=== PATIENT | male | born 2000 | race Caucasian/White ===

== ENCOUNTER 2022-05-30 01:36 | Inpatient (IN) | payer SELFPAY ==
[2022-05-30] VITALS (10 sets, daily range): BP systolic 147–181; BP diastolic 77–110
[~2022-05-30] VITALS: Ht 193 cm; Wt 126.1 kg
[2022-05-30] MEDS ORDERED: FAMOTIDINE 20 MG/2 ML VIAL IV STA (02:10)
[2022-05-30] MEDS ORDERED: ONDANSETRON HCL INJ 2MG/ML 2ML 2 MG/ML VIAL IV STA (02:10)
[2022-05-30] MEDS ORDERED: SODIUM CHLORIDE FLUSH 10 ML SYR IV PRN (02:14)
[2022-05-30] MEDS: SODIUM CHLORIDE 0.9% 1000ML 1,000 ML IV SCH ×4 (02:30→22:37)
[2022-05-30] MEDS ORDERED: SODIUM CHLORIDE 0.9% 1000ML 1,000 ML ONE (02:31)
[2022-05-30] MEDS ORDERED: ONDANSETRON HCL INJ 2MG/ML 2ML 2 MG/ML VIAL ONE (02:31)
[2022-05-30] MEDS ORDERED: FAMOTIDINE 20 MG/2 ML VIAL IV ONE (02:32)
[2022-05-30] MEDS ORDERED: KETOROLAC TROMETHAMINE 30 MG/ML VIAL IV STA (02:57)
[2022-05-30] MEDS ORDERED: DONNATAL/LIDOCAINE/MAALOX 30 ML SUSP PO ONE (03:00)
[2022-05-30 03:01] LABS: BASOPHILS # (AUTO) 0.1 (0.0-0.1); BASOPHILS % 0.3 % (0.0-1.0); HEMATOCRIT 53.3 % (38.2-49.6); HEMOGLOBIN 18.3 g/dL (14.0-18.0); LYMPHOCYTES # (AUTO) 1.2 (1.0-3.2); MEAN CORPUSCULAR HEMOGLOBIN 33.8 pg (28-32); MEAN CORPUSCULAR HGB CONC 34.3 g/dL (31-35); MEAN CORPUSCULAR VOLUME 98.3 fL (81-99); MONOCYTES # (AUTO) 1.6 (0.2-0.8); MONOCYTES % 6.7 % (4.4-11.3); NEUTROPHILS % 87.4 % (38.7-80.0); PLATELET COUNT 304 x10e3/uL (140-360); RED BLOOD COUNT 5.42 x10e6/uL (4.3-5.7); RED CELL DISTRIBUTION WIDTH 12.8 % (11.7-14.4)
[2022-05-30 03:11] LABS: INR 0.86; PARTIAL THROMBOPLASTIN TIME 27.4 seconds (23.8-35.5); PROTHROMBIN TIME 12.5 seconds (11.9-14.5)
[2022-05-30 03:22] LABS: ALBUMIN 4.3 g/dL (3.5-5.0); ANION GAP 22.9 mmol/L (8-16); CALCIUM 9.1 mg/dL (8.4-10.2); CREATININE, SERUM 0.98 mg/dL (0.72-1.25); POTASSIUM 3.9 mmol/L (3.5-5.1)
[2022-05-30] MEDS ORDERED: SODIUM CHLORIDE 0.9% 1000ML 1,000 ML IV SCH (03:30)
[2022-05-30] MEDS ORDERED: BELLADONNA ALK/PHENOBARBITAL 5 ML UDC ONE (03:32)
[2022-05-30] MEDS ORDERED: LIDOCAINE VISC 2% SOLN 15 ML UDC ONE (03:32)
[2022-05-30] MEDS ORDERED: MAGNESIUM/ALUMINUM/SIMETHICONE 30 ML UDC ONE (03:33)
[2022-05-30] MEDS ORDERED: IOPAMIDOL 370 MG/ML 100 ML INFUS..BTL INJ ONE (04:13)
[2022-05-30 04:22] LABS: CLARITY,URINE SL CLOUDY (CLEAR); COLOR,URINE AMBER (YELLOW); KETONES,URINE NEGATIVE (NEGATIVE); LEUKOCYTE ESTERASE ,URINE NEGATIVE (NEGATIVE); NITRITE,URINE NEGATIVE (NEGATIVE); PROTEIN,URINE DIPSTICK TRACE (NEGATIVE); URINE UROBILINOGEN 0.2 mg/dL (0.2 - 1)
[2022-05-30 04:26] LABS: AMPHETAMINES SCREEN,URINE NEGATIVE (NEGATIVE); BENZODIAZEPINES SCREEN,URINE NEGATIVE (NEGATIVE); PHENCYCLIDINE SCREEN,URINE NEGATIVE (NEGATIVE)
[2022-05-30 04:28] LABS: BACTERIA,URINE RARE /HPF; EPITHELIAL CELLS,URINE RARE /LPF; MUCUS,URINE MANY (RARE); WBC,URINE (MAN) 0-5 /HPF (0-5)
[2022-05-30] MEDS ORDERED: ACETAMINOPHEN 1000 MG/100 ML IV STA (04:56)
[2022-05-30] MEDS ORDERED: ONDANSETRON HCL INJ 2MG/ML 2ML 2 MG/ML VIAL IV PRN (05:00)
[2022-05-30] MEDS ORDERED: Morphine 4mg INJECTION 4 MG/ML INJ IV PRN (05:00)
[2022-05-30] MEDS ORDERED: PIPERACILLIN/TAZOBACTAM 3.375 GM VIAL ONE (06:05)
[2022-05-30] MEDS: HYDROMORPHONE 1MG/1ML INJ IV PRN ×6 (09:13→22:37)
[2022-05-30] MEDS ORDERED: SODIUM CHLORIDE 0.9% IV ONE ×3 (09:15)
[2022-05-30] MEDS: AMLODIPINE BESYLATE 10 MG TAB PO SCH (13:09)
[2022-05-30] MEDS: NICOTINE 21 MG/EA PATCH TOP SCH (13:42)
[2022-05-30] MEDS: BUPROPION HCL SR 150 MG TAB PO SCH (17:33)
[2022-05-31] VITALS (7 sets, daily range): BP systolic 131–163; BP diastolic 83–92
[2022-05-31] MEDS: HYDROMORPHONE 1MG/1ML INJ IV PRN ×7 (01:42→23:40)
[2022-05-31] MEDS: SODIUM CHLORIDE 0.9% 1000ML 1,000 ML IV SCH ×4 (04:59→23:41)
[2022-05-31 06:16] LABS: BASOPHILS # (AUTO) 0.1 (0.0-0.1); BASOPHILS % 0.3 % (0.0-1.0); EOSINOPHILS % 0.2 % (0.0-6.0); HEMATOCRIT 41.8 % (38.2-49.6); HEMOGLOBIN 14.8 g/dL (14.0-18.0); LYMPHOCYTES # (AUTO) 1.1 (1.0-3.2); LYMPHOCYTES % 5.7 % (18.0-39.1); MEAN CORPUSCULAR HEMOGLOBIN 33.9 pg (28-32); MEAN CORPUSCULAR HGB CONC 35.4 g/dL (31-35); MEAN CORPUSCULAR VOLUME 95.7 fL (81-99); MONOCYTES # (AUTO) 1.3 (0.2-0.8); MONOCYTES % 6.5 % (4.4-11.3); NEUTROPHILS % 86.2 % (38.7-80.0); PLATELET COUNT 169 x10e3/uL (140-360); RED BLOOD COUNT 4.37 x10e6/uL (4.3-5.7); RED CELL DISTRIBUTION WIDTH 13.3 % (11.7-14.4)
[2022-05-31 06:46] LABS: ALBUMIN 3.3 g/dL (3.5-5.0); ALBUMIN/GLOBULIN RATIO 0.9 (0.8-2.0); ANION GAP 16.5 mmol/L (8-16); CALCIUM 8.5 mg/dL (8.4-10.2); CREATININE, SERUM 0.73 mg/dL (0.72-1.25); POTASSIUM 3.5 mmol/L (3.5-5.1)
[2022-05-31 07:24] LABS: AMYLASE 32 U/L (25-125); LIPASE 140 U/L (8-78)
[2022-05-31] MEDS: NICOTINE 21 MG/EA PATCH TOP SCH (08:01)
[2022-05-31] MEDS: OLMESARTAN 20 MG TAB PO SCH (08:02)
[2022-05-31] MEDS: BUPROPION HCL SR 150 MG TAB PO SCH ×2 (08:02→17:14)
[2022-05-31] MEDS: AMLODIPINE BESYLATE 10 MG TAB PO SCH (08:03)
[2022-06-01] VITALS (8 sets, daily range): BP systolic 133–151; BP diastolic 70–99
[2022-06-01] MEDS: HYDROMORPHONE 1MG/1ML INJ IV PRN ×5 (03:13→22:05)
[2022-06-01 06:11] LABS: BASOPHILS % 0.3 % (0.0-1.0); EOSINOPHILS # (AUTO) 0.1 (0.0-0.4); EOSINOPHILS % 0.5 % (0.0-6.0); HEMATOCRIT 41.1 % (38.2-49.6); HEMOGLOBIN 13.4 g/dL (14.0-18.0); LYMPHOCYTES # (AUTO) 1.3 (1.0-3.2); LYMPHOCYTES % 8.8 % (18.0-39.1); MEAN CORPUSCULAR HEMOGLOBIN 33.5 pg (28-32); MEAN CORPUSCULAR HGB CONC 32.6 g/dL (31-35); MEAN CORPUSCULAR VOLUME 102.8 fL (81-99); MONOCYTES # (AUTO) 1.1 (0.2-0.8); MONOCYTES % 7.2 % (4.4-11.3); NEUTROPHILS # (AUTO) 12.1 (2.1-6.9); NEUTROPHILS % 82.5 % (38.7-80.0); PLATELET COUNT 178 x10e3/uL (140-360); RED CELL DISTRIBUTION WIDTH 13.1 % (11.7-14.4)
[2022-06-01] MEDS: SODIUM CHLORIDE 0.9% 1000ML 1,000 ML IV SCH ×3 (06:18→20:58)
[2022-06-01 06:41] LABS: ALBUMIN/GLOBULIN RATIO 0.7 (0.8-2.0); ANION GAP 14.5 mmol/L (8-16); CALCIUM 8.7 mg/dL (8.4-10.2); CREATININE, SERUM 0.6 mg/dL (0.72-1.25); POTASSIUM 3.5 mmol/L (3.5-5.1)
[2022-06-01] MEDS: AMLODIPINE BESYLATE 10 MG TAB PO SCH (08:38)
[2022-06-01] MEDS: OLMESARTAN 20 MG TAB PO SCH (08:38)
[2022-06-01] MEDS: BUPROPION HCL SR 150 MG TAB PO SCH ×2 (08:39→17:00)
[2022-06-01] MEDS: NICOTINE 21 MG/EA PATCH TOP SCH (08:39)
[2022-06-01] MEDS ORDERED: POTASSIUM CHLORIDE 10MEQ EA PO ONE (09:00)
[2022-06-01] MEDS ORDERED: ONDANSETRON HCL 4 MG ORAL DISINTEGRATING TAB SL PRN (10:00)
[2022-06-01] MEDS ORDERED: POTASSIUM CHLORIDE 20MEQ/100ML 100 ML IV ONE (11:30)
[2022-06-01] MEDS ORDERED: PANTOPRAZOLE SOD 40 MG TABEC PO SCH (17:15)
[2022-06-02] VITALS: BP 133/66
[2022-06-02 04:00] VITALS: BP 137/88
[2022-06-02] MEDS: HYDROMORPHONE 1MG/1ML INJ IV PRN ×3 (04:04→12:14)
[2022-06-02 06:17] LABS: BASOPHILS % 0.5 % (0.0-1.0); EOSINOPHILS # (AUTO) 0.2 (0.0-0.4); EOSINOPHILS % 2.1 % (0.0-6.0); HEMATOCRIT 41.1 % (38.2-49.6); HEMOGLOBIN 13.4 g/dL (14.0-18.0); LYMPHOCYTES # (AUTO) 1.3 (1.0-3.2); LYMPHOCYTES % 14.9 % (18.0-39.1); MEAN CORPUSCULAR HEMOGLOBIN 33.8 pg (28-32); MEAN CORPUSCULAR HGB CONC 32.6 g/dL (31-35); MEAN CORPUSCULAR VOLUME 103.5 fL (81-99); MONOCYTES # (AUTO) 0.8 (0.2-0.8); MONOCYTES % 9.1 % (4.4-11.3); NEUTROPHILS # (AUTO) 6.2 (2.1-6.9); NEUTROPHILS % 72.3 % (38.7-80.0); PLATELET COUNT 214 x10e3/uL (140-360); RED BLOOD COUNT 3.97 x10e6/uL (4.3-5.7); RED CELL DISTRIBUTION WIDTH 12.8 % (11.7-14.4)
[2022-06-02] MEDS: SODIUM CHLORIDE 0.9% 1000ML 1,000 ML IV SCH (06:28)
[2022-06-02 06:58] LABS: ALBUMIN 2.9 g/dL (3.5-5.0); ALBUMIN/GLOBULIN RATIO 0.6 (0.8-2.0); ANION GAP 17.3 mmol/L (8-16); CALCIUM 9.2 mg/dL (8.4-10.2); CREATININE, SERUM 0.61 mg/dL (0.72-1.25); POTASSIUM 3.3 mmol/L (3.5-5.1)
[2022-06-02] MEDS: BUPROPION HCL SR 150 MG TAB PO SCH (08:49)
[2022-06-02] MEDS: NICOTINE 21 MG/EA PATCH TOP SCH (08:49)
[2022-06-02] MEDS: AMLODIPINE BESYLATE 10 MG TAB PO SCH (08:50)
[2022-06-02] MEDS: OLMESARTAN 20 MG TAB PO SCH (08:50)
[2022-06-02 09:00] VITALS: BP 140/81
[2022-06-02] MEDS ORDERED: PANTOPRAZOLE SOD 40 MG TABEC PO SCH (09:00)
[2022-06-02 09:53] VITALS: BP 146/81
[2022-06-02] MEDS ORDERED: POTASSIUM CHLORIDE 10MEQ EA PO ONE (10:00)
[2022-06-02] MEDS ORDERED: PANTOPRAZOLE SO40 MG PO (10:49)
[2022-06-02 12:43] VITALS: BP 129/85
== END 2022-06-02 17:02 | disposition home or self-care (01) | DRG 871 ==
LOC: ER 01:40 → ERHOLD 04:50 → MED/SURG2 06:22
DX: A41.9 Sepsis, unspecified organism (principal); K85.20 Alcohol induced acute pancreatitis without necrosis or infection; I11.9 Hypertensive heart disease without heart failure; K76.0 Fatty (change of) liver, not elsewhere classified; F11.90 Opioid use, unspecified, uncomplicated; F12.90 Cannabis use, unspecified, uncomplicated; F90.9 Attention-deficit hyperactivity disorder, unspecified type; E66.9 Obesity, unspecified; Z68.33 Body mass index [BMI] 33.0-33.9, adult; F10.20 Alcohol dependence, uncomplicated; K21.9 Gastro-esophageal reflux disease without esophagitis; F32.9 Major depressive disorder, single episode, unspecified; E87.6 Hypokalemia; Z72.0 Tobacco use; Z20.822 Contact with and (suspected) exposure to COVID-19; Z87.820 Personal history of traumatic brain injury; Z87.11 Personal history of peptic ulcer disease; Y90.0 Blood alcohol level of less than 20 mg/100 ml
CPT/HCPCS: 0223U; 36415; 74177; 80053; 80061; 80307; 80320; 81001; 82150; 83605; 83690; 85025; 85610; 85730; 87040; 96360; 96361; 99284; J1170; J1885; J2270; J2405; J2543; J7030; Q0162; Q9967